=== PATIENT | female | born 1955 | race Caucasian/White ===

== ENCOUNTER 2017-03-25 11:36 | Inpatient (IN) ==
[2017-03-25] MEDS ORDERED: 0.9 % SODIUM CHLORIDE 1,000 ML IV ONE (12:06)
[2017-03-25] MEDS ORDERED: ONDANSETRON 4 MG/2 ML VIAL IV ONE (12:25)
[2017-03-25 12:47] LABS: Basophils # (Auto) 0 K/mcL (0.0-0.3); Basophils % (Auto) 0.3 % (0.0-2.0); Eosinophils # (Auto) 0.1 K/mcL (0.0-0.7); Eosinophils % (Auto) 1.4 % (0.0-7.0); Granulocytes % (Auto) 69.9 % (38.0-78.0); Lymphocytes # (Auto) 1.9 K/mcL (1.5-4.8); Lymphocytes % (Auto) 21.4 % (15.5-49.0); Mean Cell Volume 100.9 fL (80.0-100.0); Mean Corpuscular HGB Conc 34.1 g/dL (31.0-36.0); Mean Corpuscular Hemoglobin 34.4 pg (26.0-34.0); Monocytes # (Auto) 0.6 K/mcL (0.1-0.9); Platelet Count 336 K/mcL (140-440); RBC 4.26 M/mcL (4.00-5.20); Red Cell Distribution Width 13.8 % (11.5-14.5)
--- NOTE | 2017-03-25 12:51 | Emergency Department Note ---
Abdominal Pain HPI - General Chief Complaint: Abdominal Pain Stated Complaint: Abd pain since Wednesday Time Seen by Provider: 03/25/17 12:20 Source: patient Mode of arrival: ambulatory Limitations: no limitations - History of Present Illness HPI Narrative: Patient's tells me that she had an upper respiratory infection about 2 weeks ago. This started with a cough and the cough has been nonproductive for the most part. She does work in recovery and she was prescribed a course of amoxicillin and prednisone by Dr. Vogel who works in anesthesia. She was feeling a little bit better cough xie when she started developing abdominal pain in the mid epigastric area this past Wednesday. She thought it was a flareup of her pancreatitis and thus started drinking very little in the way of fluids, not eating much and she was actually a little bit better yesterday but then the pain started coming back. She rates the pain as being 6 out of 10. She has stopped drinking for the last few days, she normally drinks about 3 glasses of wine per day. Does have a history of [place]-en-Y procedure, she is also status post cholecystectomy, hysterectomy and appendectomy.no fevers associated. No chest pain, she denies any s or other respiratory symptoms. MD Complaint: abdominal pain - Related Data Home Medications Medication Instructions Recorded Confirmed Metoprolol Succinate [Toprol Xl] 100 mg PO DAILY 10/15/15 03/25/17 Valsartan [Diovan] 80 mg PO DAILY 10/15/15 03/25/17 Zolpidem [Ambien] 10 mg PO HSP PRN 10/15/15 03/25/17 amLODIPine [Norvasc] 10 mg PO DAILY 10/15/15 03/25/17 traZODone HCL [Desyrel] 100 mg PO HS 10/15/15 03/25/17 Allergies Allergy/AdvReac Type Severity Reaction Status Date / Time meperidine [From Demerol] Allergy Verified 03/25/17 11:40 Review of Systems All systems ED: reviewed and negative except as stated. Abdominal Pain PMH - Past Medical History Attestation: Yes: The following information was validated with the patient. Medical history: Reports: atrial fibrillation, hyperlipidemia, hypertension, obesity, other (insomnia, hormone replacement, 1 previous episode of A. fib) Surgical history ED: Reports: appendectomy, cholecystectomy, hysterectomy, other ([place]-en-Y procedure back in 2004. This is for gastric bypass surgery.) Family history: Reports: no significant family history - Social History Smoking status: Former smoker Alcohol use: Reports: Heavy (3-5 glasses of wine per night), Recent Drug use: Reports: none Physical Exam Limitations: no limitations General appearance: alert Head: atraumatic, normocephalic Eye: Present: normal appearance, PERRL, EOMI, scleral icterus ENT: normal exam, normal oropharynx, mucous membranes moist Neck: Present: normal inspection, full ROM, trachea midline. Absent: tenderness Chest: Present: normal inspection, symmetric chest wall rise Respiratory: Present: normal lung sounds bilaterally. Absent: respiratory distress, wheezes Cardiovascular: Present: regular rate, normal heart sounds Abdominal: Present: soft, tenderness, guarding, normal bowel sounds. Absent: distention, rebound Abdominal tenderness: Present: epigastrium, mild Extremities: Present: normal inspection, full ROM. Absent: tenderness Back: Present: normal inspection. Absent: CVA tenderness (R), CVA tenderness (L ), vertebral tenderness Neurological: Present: alert, oriented X3, CN II-XII intact, normal gait Psychiatric: Present: normal affect Skin: Present: warm, dry, intact. Absent: rash Course Vital Signs Temperature 97.4 F 03/25/17 11:37 Pulse Rate 98 H 03/25/17 11:37 Respiratory Rate 16 03/25/17 11:37 Blood Pressure 112/76 03/25/17 11:37 Pulse Oximetry (%) 99 03/25/17 11:37 Temperature 97.4 F 03/25/17 11:37 Pulse Rate 86 03/25/17 14:22 Respiratory Rate 16 03/25/17 11:37 Blood Pressure 139/82 03/25/17 14:22 Pulse Oximetry (%) 98 03/25/17 14:22 Abdominal Pain - MDM Narrative Medical decision making narrative: Labs and x-rays reviewed. No acute findings except for elevated lipase. She is also a little bit dehydrated, Bielen was 27. Patient states her pain is 6 out of 10. We did medicate with hydromorphone. At this point she needs bowel rest, IV fluids, discussed with Dr. Khanna final diagnosis is pancreatitis - Lab Data Lab results reviewed: Yes I reviewed the patient's lab results. Result diagrams: 03/25/17 12:24 03/25/17 12:24 Lab Results 03/25/17 03/25/17 03/25/17 Range/Units 12:24 12:24 14:25 WBC 9.0 (4.5-11.0) K/mcL RBC 4.26 (4.00-5.20) M/mcL Hgb 14.7 (12.0-15.0) g/dL Hct 43.0 (36.0-48.0) % MCV 100.9 H (80.0-100.0) fL MCH 34.4 H (26.0-34.0) pg MCHC 34.1 (31.0-36.0) g/dL RDW 13.8 (11.5-14.5) % Plt Count 336 (140-440) K/mcL MPV 7.1 L (7.4-10.4) fL Gran % 69.9 (38.0-78.0) % Lymph % (Auto) 21.4 (15.5-49.0) % Greer % (Auto) 7.0 (1.0-12.0) % Eos % (Auto) 1.4 (0.0-7.0) % Baso % (Auto) 0.3 (0.0-2.0) % Gran # 6.3 (1.8-8.0) K/mcL Lymph # (Auto) 1.9 (1.5-4.8) K/mcL Gre[place] # (Auto) 0.6 (0.1-0.9) K/mcL Eos # (Auto) 0.1 (0.0-0.7) K/mcL Baso # (Auto) 0 (0.0-0.3) K/mcL Sodium 133 (133-145) mmol/L Potassium 3.8 (3.3-5.1) mmol/L Chloride 90 L (96-108) mmol/L Carbon Dioxide 25 (22-30) mmol/L Anion Gap 18.0 H (8-16) BUN 27 H (6-20) mg/dl Creatinine 1.0 (0.6-1.1) mg/dl GFR Calculation 62 Glucose 114 H (70-105) mg/dL Calcium 10.5 H (8.6-10.4) mg/dl Total Bilirubin 0.8 (0.0-1.0) mg/dL AST 19 (0-37) U/l ALT 14 (0-40) U/l Alkaline Phosphatase 101 (39-117) U/L Total Protein 8.0 (5.9-8.4) gm/dL Albumin 4.0 (3.2-5.2) gm/dL Globulin 4.0 H (2.2-3.7) gm/dL Albumin/Globulin Ratio 1.0 (1.0-2.3) Amylase 181 H (28-100) U/L Lipase 297 H (7-60) U/L Urine Color Yellow Urine Appearance Hazy Urine pH 5.0 (5.0-9.0) Ur Specific [place] 1.021 (1.000-1.035) Urine Protein 30 A (NEG) mg/dL Urine Glucose (UA) Negative (NEG) mg/dL Urine Ketones 20 A (NEG) mg/dL Urine Occult Blood Neg (<0.03) mg/dL Urine Nitrate Neg (NEG) Urine Bilirubin Neg (NEG) mg/dL Urine Urobilinogen Neg (NEG) mg/dL Ur Leukocyte Esterase 250 A (NEG) /uL Urine RBC 2 H (0-1) /hpf Urine WBC 14 H (0-4) /hpf Ur Squamous Epith Cells 1 (0-4) /hpf Ur Transition Epith Cell 1 (0-2) /hpf Urine Bacteria 0 (0) /hpf Hyaline Casts 11 H (0-2) /lpf Urine Mucus Few (0) /hpf Ur Culture Indicated? Yes Disposition Pt seen by [facility]/PA only: No Clinical Impression: Pancreatitis Disposition: Xfer As Outpt/Obs ([facility]) Condition: Fair Referrals: Moises Romeo MD [Primary Care Provider] -
[2017-03-25] MEDS ORDERED: PANTOPRAZOLE 40 MG VIAL IV ONE (12:56)
[2017-03-25 13:08] LABS: ALT/SGPT 14 U/l (0-40); Alkaline Phosphatase 101 U/L (39-117); Amylase 181 U/L (28-100); Blood Urea Nitrogen 27 mg/dl (6-20); Lipase 297 U/L (7-60)
[2017-03-25] MEDS: HYDROmorphone 2 MG/ML SYRINGE IV PRN ×5 (13:23→19:57)
[2017-03-25 14:44] LABS: Appearance,Urine HAZY; Bacteria,Urine 0 /hpf (0); Bilirubin,Urine NEG (NEG); Color,Urine YELLOW; Glucose,Urine (UA) NEGATIVE (NEG); Leukocyte Esterase,Urine 250 /uL (NEG); Mucus,Urine FEW /hpf (0); Nitrate,Urine NEG (NEG); Protein,Urine 30 mg/dL (NEG); Specific Gravity,Urine 1.021 (1.000-1.035); Urine Blood NEG mg/dL (<0.03); Urine Hyaline Cast 11 /lpf (0-2); Urine RBC 2 /hpf (0-1); Urine Squamous Epithelial Cell 1 /hpf (0-4); Urine Transitional Epi Cells 1 /hpf (0-2); Urine WBC 14 /hpf (0-4); Urobilinogen,Urine NEG (NEG)
--- NOTE | 2017-03-25 15:05 | XRay Report ---
CLINICAL INFORMATION: Abdomen pain COMPARISON: None. FINDINGS: The stool gas pattern is unremarkable. There is no free air, soft tissue mass, organomegaly or pathologic calcification. IMPRESSION: Normal abdomen Interpreted and Authenticated by: Delvin Benitez 03/25/17
[2017-03-25] MEDS ORDERED: PROMETHAZINE 25 MG/ML VIAL IV ONE (16:09)
--- NOTE | 2017-03-25 16:52 | Internal Med History&Physical ---
Medical - H&P: HPI Patient information: Note initiated : 03/25/17 at 4:51 pm Patient: Sonia Hernandez 61 y/o F admitted on for Abd pain since Wednesday. History of present illness: Ms. Hernandez is a 61 year old female with a history of hypertension and one previous episode of pancreatitis. About 2 weeks ago, she developed signs and symptoms of an upper respiratory infection with cough and fever. She was prescribed amoxicillin and prednisone. She says she did a great deal of coughing, and felt that her abdominal discomfort was related to all of the coughing. Then, 3 days ago, her abdominal pain became a more significant symptom. She is having a lot of pain in the epigastric area, which has gotten consistently worse over the last 2 days. She became concerned that she was having a pancreatitis recurrence, so she basically stopped eating and drinking at home, hoping it would settle down, but it did not. For the last couple of days now, she has been feeling lightheaded. She continues to have a mildly sore throat and a cough productive of clear to yellowish phlegm. Her abdominal pain is currently about a 6 out of 10. She has had nausea and vomiting. She initially brought up just food, and then just frothy phlegm. She denies any hematemesis. She has not had diarrhea or blood in her stool. She is noticing that her urine is turning dark and has a strong odor. ER evaluation showed mildly elevated BUN and mildly elevated lipase. She is now admitted for bowel rest and pain management. Otherwise, she denies fever. She feels chilled chest today. She denies headaches, new eye or ear symptoms, sinus symptoms, swollen glands. She denies chest pain or palpitations, shortness of breath or wheezing, dysuria. Past medical history: Hypertension History of [place]-en-Y bypass Pancreatitis in September 2015, thought to be due to alcohol use Breast lumpectomy for benign lesion Almost daily alcohol use Medications: Amlodipine 10 mg daily Metoprolol XL 100 mg daily Trazodone 100 mg nightly Valsartan 80 mg daily Ambien 10 mg nightly as needed, last used about 2 weeks ago. Allergies: Demerol. Family history: Mom had hypertension and stroke. Sister had breast cancer. Social history: The patient says last year she was drinking 4-8 glasses of wine per day. Since then she has cut down to 0-4 glasses per day. She smokes cigarettes for about 15 years, but quit around age 39. She does not use drugs. 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 She is and lives with her . Medical - H&P: Meds Home Medications Medication Instructions Recorded Confirmed Type Metoprolol Succinate [Toprol Xl] 100 mg PO DAILY 10/15/15 03/25/17 History Valsartan [Diovan] 80 mg PO DAILY 10/15/15 03/25/17 History Zolpidem [Ambien] 10 mg PO HSP PRN 10/15/15 03/25/17 History amLODIPine [Norvasc] 10 mg PO DAILY 10/15/15 03/25/17 History traZODone HCL [Desyrel] 100 mg PO HS 10/15/15 03/25/17 History Allergies Allergy/AdvReac Type Severity Reaction Status Date / Time meperidine [From Demerol] Allergy Verified 03/25/17 11:40 Medical - H&P: Exam - Constitutional Vitals: Temp Pulse Resp BP Pulse Ox 97.4 F 73 16 143/72 97 03/25/17 11:37 03/25/17 16:19 03/25/17 11:37 03/25/17 16:19 03/25/17 16:19 On exam, she is a well-developed well-nourished female, who appears uncomfortable. She frequently shifts positions in the bed due to epigastric pain. T-max is 99.8 Head: Normocephalic, atraumatic. Ears: Canals are clear. Left TM is clear. Right TM has significant scarring. Eyes: PERRLA, EOMI, anicteric. Pharynx: Pharynx is clear. Teeth are in fair condition. No posterior pharynx exudate is noted. Neck: Is supple, without obvious lymphadenopathy, JVD, thyromegaly, bruits. Cardiac exam: Shows regular rate and rhythm with normal S1 and S2, without murmurs, rubs, gallops. Lungs: Have a few crackles at the bases, but are otherwise clear, without rhonchi or wheezes. Abdomen: Is obese, but soft. There is some guarding. She has significant epigastric tenderness, but no significant rebound. Bowel sounds are hypoactive. No masses are noted. Extremities: Show no cyanosis, clubbing, edema. Pulses are intact. Neurologic exam: She is alert and oriented, calm and cooperative. Cranial nerves and motor exam are grossly nonfocal. Skin exam does not show any obvious rashes. Medical - H&P: Reslt - Labs CBC & Chem 7: 03/25/17 12:24 03/25/17 12:24 Labs: Short CBC 03/25/17 Range/Units 12:24 WBC 9.0 (4.5-11.0) K/mcL Hgb 14.7 (12.0-15.0) g/dL Hct 43.0 (36.0-48.0) % Plt Count 336 (140-440) K/mcL BMP 03/25/17 12:24 Sodium 133 Potassium 3.8 Chloride 90 L Carbon Dioxide 25 BUN 27 H Creatinine 1.0 Glucose 114 H Calcium 10.5 H Liver Function 03/25/17 Range/Units 12:24 Total Bilirubin 0.8 (0.0-1.0) mg/dL AST 19 (0-37) U/l ALT 14 (0-40) U/l Alkaline Phosphatase 101 (39-117) U/L Albumin 4.0 (3.2-5.2) gm/dL Urine 03/25/17 Range/Units 14:25 Urine Color Yellow Urine Appearance Hazy Urine pH 5.0 (5.0-9.0) Ur Specific [place] 1.021 (1.000-1.035) Urine Protein 30 A (NEG) mg/dL Urine Glucose (UA) Negative (NEG) mg/dL March 25: Chemistry panel shows elevated anion gap of 18. Total calcium is elevated at 10.5 Globulin fraction is elevated at 4.0 Lipase is elevated at 297 [place] amylase is elevated at 181. Next Urinalysis: 30 mg of protein, 20+ ketones, 250 leukocyte esterase, 14 white blood cells, 11 hyaline casts, 0 bacteria Abdominal x-ray: Is read as a normal abdomen. Medical - H&P: A/P (1) Hypertension Current visit: Yes Status: Acute (2) Alcohol use Current visit: Yes Status: Acute (3) Insomnia Current visit: Yes Status: Acute (4) Pancreatitis Current visit: Yes Status: Acute - Narrative A/P Narrative: #1. GI. Patient presents with abdominal pain, elevated amylase and lipase, consistent with recurrent pancreatitis. She reports she was diagnosed with chronic pancreatitis last year. She has cut down her alcohol use, but has not quit. Her doctors last year felt that alcohol was probably the cause. However, she also takes other medications that could cause pancreatitis. -Patient has failed home management. She will be admitted for IV fluids, bowel rest, pain management, nausea management. -Abdominal CT was not done yet. If her symptoms do not improve quickly, we may check either a sonogram or MRI or CT. -The patient reports she understands she really needs to cut down or cut out alcohol use. -Check serial labs. 2. CODE STATUS: Full code. 3. DVT prophylaxis: Subcu heparin. 4. Pulmonary. Patient has been battling a recent upper respiratory infection. It sounds like that overall is improving. 5. Hypertension. Continue amlodipine and metoprolol as tolerated. Hold valsartan for now, as this can also cause pancreatitis. Next 6. Regular alcohol use. Use Ativan as needed for agitation or other signs of early withdrawal. Approximately 55 minutes was spent today, reviewing her case with the ER MD, reviewing her records, interviewing and examining the patient, and writing orders.
[2017-03-25] MEDS ORDERED: NALOXONE HCL 0.4 MG/ML VIAL IV PRN (17:24)
[2017-03-25] MEDS ORDERED: ACETAMINOPHEN 650 MG/65 ML BOTTLE IV PRN (17:24)
[2017-03-25] MEDS ORDERED: MAGNESIUM HYDROXIDE 30 ML ORAL.SUSP PO PRN (17:24)
[2017-03-25] MEDS ORDERED: ALBUTEROL SULFATE 2.5 MG/3 ML NEBULIZER NEB PRN (17:24)
[2017-03-25] MEDS: DEXTROSE 5%-1/2NS W/20MEQ KCL 1,000 ML IV SCH (17:56)
[2017-03-25] MEDS: ONDANSETRON 4 MG/2 ML VIAL IV PRN (19:58)
[2017-03-25] MEDS: 0.9 % SODIUM CHLORIDE 10 ML SYRINGE IV SCH ×2 (19:58→21:36)
[2017-03-25] MEDS: HEPARIN 5,000 UNIT/ML VIAL SQ SCH (21:36)
[2017-03-25] MEDS: LORazepam 2 MG/ML VIAL IV PRN (21:36)
[2017-03-25] MEDS: traZODone HCL 50 MG TABLET PO SCH (21:41)
[2017-03-26] MEDS: HYDROmorphone 2 MG/ML SYRINGE IV PRN ×5 (00:03→19:18)
[2017-03-26] MEDS: DEXTROSE 5%-1/2NS W/20MEQ KCL 1,000 ML IV SCH ×3 (02:07→21:23)
[2017-03-26] MEDS: 0.9 % SODIUM CHLORIDE 10 ML SYRINGE IV SCH ×3 (04:51→22:42)
[2017-03-26 05:43] LABS: Basophils # (Auto) 0 K/mcL (0.0-0.3); Basophils % (Auto) 0.2 % (0.0-2.0); Eosinophils # (Auto) 0.1 K/mcL (0.0-0.7); Eosinophils % (Auto) 0.8 % (0.0-7.0); Granulocytes % (Auto) 70.5 % (38.0-78.0); Lymphocytes # (Auto) 1.2 K/mcL (1.5-4.8); Lymphocytes % (Auto) 19.2 % (15.5-49.0); Mean Cell Volume 100.8 fL (80.0-100.0); Mean Corpuscular HGB Conc 34.5 g/dL (31.0-36.0); Mean Corpuscular Hemoglobin 34.7 pg (26.0-34.0); Monocytes # (Auto) 0.6 K/mcL (0.1-0.9); Monocytes % (Auto) 9.3 % (1.0-12.0); Platelet Count 304 K/mcL (140-440); RBC 3.54 M/mcL (4.00-5.20); Red Cell Distribution Width 13.8 % (11.5-14.5)
[2017-03-26 06:03] LABS: ALT/SGPT 12 U/l (0-40); Albumin 3.2 gm/dL (3.2-5.2); Albumin/Globulin Ratio 1.1 (1.0-2.3); Alkaline Phosphatase 76 U/L (39-117); Bilirubin,Direct < 0.2 mg/dL (0.0-0.3); Blood Urea Nitrogen 13 mg/dl (6-20); Gamma Glutamyl Transpeptidase 42 U/L (5-36); Magnesium 2.2 mg/dL (1.6-2.5); Uric Acid 6.4 mg/dL (2.5-8.0)
[2017-03-26 06:12] LABS: Lipase 631 U/L (7-60)
[2017-03-26] MEDS ORDERED: POTASSIUM PHOSPHATE 40 MEQ in DEXTROSE 5% IN WATER 500 ML IV ONE (07:32)
[2017-03-26] MEDS: ONDANSETRON 4 MG/2 ML VIAL IV PRN (08:15)
[2017-03-26] MEDS: LOSARTAN 50 MG TABLET PO SCH (10:05)
[2017-03-26] MEDS: METOPROLOL SUCCINATE 50 MG TAB.XL.24H PO SCH (10:05)
[2017-03-26] MEDS: amLODIPine 10 MG TABLET PO SCH (10:05)
[2017-03-26] MEDS: HEPARIN 5,000 UNIT/ML VIAL SQ SCH ×2 (10:05→22:42)
--- NOTE | 2017-03-26 11:12 | Internal Med Progress Note ---
Medical - PN: Subj Patient information: Note initiated : 03/26/17 at 11:12 am Patient: Sonia Hernandez 61 y/o F admitted on 03/25/17 for Abd Pain since Wednesday /Pancreatitis. Interval history: March 25, 2017: History of present illness: Ms. Hernandez is a 61 year old female with a history of hypertension and one previous episode of pancreatitis. About 2 weeks ago, she developed signs and symptoms of an upper respiratory infection with cough and fever. She was prescribed amoxicillin and prednisone. She says she did a great deal of coughing, and felt that her abdominal discomfort was related to all of the coughing. Then, 3 days ago, her abdominal pain became a more significant symptom. She is having a lot of pain in the epigastric area, which has gotten consistently worse over the last 2 days. She became concerned that she was having a pancreatitis recurrence, so she basically stopped eating and drinking at home, hoping it would settle down, but it did not. For the last couple of days now, she has been feeling lightheaded. She continues to have a mildly sore throat and a cough productive of clear to yellowish phlegm. Her abdominal pain is currently about a 6 out of 10. She has had nausea and vomiting. She initially brought up just food, and then just frothy phlegm. She denies any hematemesis. She has not had diarrhea or blood in her stool. She is noticing that her urine is turning dark and has a strong odor. ER evaluation showed mildly elevated BUN and mildly elevated lipase. She is now admitted for bowel rest and pain management. Otherwise, she denies fever. She feels chilled chest today. She denies headaches, new eye or ear symptoms, sinus symptoms, swollen glands. She denies chest pain or palpitations, shortness of breath or wheezing, dysuria. March 26: Today, the patient reports she is feeling better. She still has epigastric pain that she rates as about 5 out of 10, relieved by Dilaudid. Nausea is controlled with Zofran. Lipase actually increased today. So far patient has been tolerating oral medications with sips of water, but is otherwise n.p.o. Phosphorus level is low today. Otherwise patient denies fever chills, chest pain or shortness of breath, vomiting or diarrhea, dysuria. - Constitutional Vitals: Vital Signs Temp Pulse Resp BP Pulse Ox 99.6 F H 84 16 148/90 97 03/26/17 08:00 03/26/17 08:00 03/26/17 08:00 03/26/17 08:00 03/26/17 08:00 Period Temp Pulse Resp BP Sys/Zambrano Pulse Ox Last 24 Hr 97.4 F-99.8 F 71-105 16-20 109-156/62-90 93-100 Intake and Output 03/25/17 03/26/17 03/26/17 21:59 05:59 13:59 Intake Total 1000 / 1000 800 / 800 Output Total 75 / 75 700 / 700 Balance -75 / -75 1000 / 1000 100 / 100 Weight 186 lb 8 oz 186 lb 8 oz Patient Weight 03/27/17 05:59 Weight 186 lb 8 oz Intake & Output: Intake & Output 03/25/17 03/26/17 03/26/17 21:59 05:59 13:59 Intake Total 1000 / 1000 800 / 800 Output Total 75 / 75 700 / 700 Balance -75 / -75 1000 / 1000 100 / 100 Weight 186 lb 8 oz 186 lb 8 oz Intake: IV 1000 / 1000 800 / 800 Dextrose 5%-1/2Ns W/20Meq KCl 1 1000 / 1000 800 / 800 ,000 ml @ 125 mls/hr IV Q8H ZEFERINO Rx#:[id number] Oral 0 / 0 Output: Void Amount 75 / 75 700 / 700 Other: # Voids 1 1 1 She is awake and alert, sitting up in bed. She does grimace if she moves around too much. Neck is supple without obvious lymphadenopathy or JVD. Cardiac exam shows regular rate and rhythm. Lungs are clear to auscultation. Abdomen: Is soft, but still with moderate epigastric tenderness. There is some guarding but no rebound. Bowel sounds are active. Extremities show no edema. Neurologic exam: Patient is alert and calm, and denies tremulousness or anxiety. Exam is grossly nonfocal. Medical - PN: Obj Da - Labs CBC & Chem 7: 03/26/17 04:05 03/26/17 04:05 Labs: Abnormal Lab Results 03/26/17 03/26/17 03/25/17 04:05 04:05 14:25 RBC 3.54 L Hct 35.7 L MCV 100.8 H MCH 34.7 H MPV 7.3 L Lymph # (Auto) 1.2 L Chloride Anion Gap BUN Glucose 134 H Calcium Phosphorus 1.8 L GGT 42 H Globulin Amylase Lipase 631 H Urine Protein 30 A Urine Ketones 20 A Ur Leukocyte Esterase 250 A Urine RBC 2 H Urine WBC 14 H Hyaline Casts 11 H 03/25/17 03/25/17 12:24 12:24 RBC Hct MCV 100.9 H MCH 34.4 H MPV 7.1 L Lymph # (Auto) Chloride 90 L Anion Gap 18.0 H BUN 27 H Glucose 114 H Calcium 10.5 H Phosphorus GGT Globulin 4.0 H Amylase 181 H Lipase 297 H Urine Protein Urine Ketones Ur Leukocyte Esterase Urine RBC Urine WBC Hyaline Casts March 26: Urine culture: Is growing less than 10,000 gram-negative bacilli. March 25: Chemistry panel shows elevated anion gap of 18. Total calcium is elevated at 10.5 Globulin fraction is elevated at 4.0 Lipase is elevated at 297 [place] amylase is elevated at 181. Next Urinalysis: 30 mg of protein, 20+ ketones, 250 leukocyte esterase, 14 white blood cells, 11 hyaline casts, 0 bacteria Abdominal x-ray: Is read as a normal abdomen. Meds: Medications Albuterol Sulfate (Ventolin) 2.5 mg NEB Q2HP PRN PRN Reason: Shortness Of Breath Amlodipine Besylate (Norvasc) 10 mg PO DAILY [facility] [place] Last Admin: 03/26/17 10:05 Dose: 10 mg Heparin Sodium (Porcine) (Heparin) 5,000 unit SQ Q12 ZEFERINO Last Admin: 03/26/17 10:05 Dose: 5,000 unit Hydromorphone HCl (Dilaudid) 1 mg IV Q2HP PRN PRN Reason: PAIN LEVEL > 6 Last Admin: 03/26/17 10:22 Dose: 1 mg Potassium Chloride/Dextrose/Sod Cl (Dextrose 5%-1/2ns W/20meq Kcl) 1,000 mls @ 125 mls/hr IV Q8H [facility] [place] Last Infusion: 03/26/17 10:09 Dose: 125 mls/hr Acetaminophen (Ofirmev) 650 mg in 65 mls @ 130 mls/hr IV Q6HP PRN PRN Reason: PAIN/FEVER > 101 Potassium Phosphate 40 meq/ (Dextrose) 509.0909 mls @ 127.273 mls/hr IV ONCE ONE Stop: 03/26/17 11:31 Last Admin: 03/26/17 10:05 Dose: 127.273 mls/hr Lorazepam (Ativan) 0.5 mg IV Q4-6HP PRN PRN Reason: ANXIETY/SEDATION Last Admin: 03/25/17 21:36 Dose: 0.5 mg Losartan Potassium (Cozaar) 50 mg PO DAILY [facility] [place] Last Admin: 03/26/17 10:05 Dose: 50 mg Magnesium Hydroxide (Milk Of Magnesia) 30 ml PO DAILYP PRN PRN Reason: Constipation Metoprolol Succinate (Toprol Xl) 100 mg PO DAILY [facility] [place] Last Admin: 03/26/17 10:05 Dose: 100 mg Naloxone HCl (Narcan) 0.1 mg IV Q2MIN PRN PRN Reason: Opiate Reversal Ondansetron HCl (Zofran) 4 mg IV Q6HP PRN PRN Reason: Nausea And Vomiting Last Admin: 03/26/17 08:15 Dose: 4 mg Sodium Chloride (Saline Flush) 10 ml IV Q8 [facility] [place] Last Admin: 03/26/17 04:51 Dose: Not Given Trazodone HCl (Desyrel) 100 mg PO HS [facility] [place] Last Admin: 03/25/17 21:41 Dose: Not Given Medical - PN: A/P - Time Spent With Patient Total time spent is greater than 50% in coordination of care (as documented) at patient's floor/unit and/or counseling patient: 25 - 35 minutes (1) Hypertension Status: Acute Current Visit: Yes (2) Alcohol use Status: Acute Current Visit: Yes (3) Insomnia Status: Acute Current Visit: Yes (4) Pancreatitis Status: Acute Current Visit: Yes - Narrative A/P Narrative: #1. GI. Patient presents with abdominal pain, elevated amylase and lipase, consistent with recurrent pancreatitis. She reports she was diagnosed with chronic pancreatitis last year. She has cut down her alcohol use, but has not quit. Her doctors last year felt that alcohol was probably the cause. However, she also takes other medications that could cause pancreatitis. - admitted for IV fluids, bowel rest, pain management, nausea management. She is feeling a bit better today, but her lipase is actually higher. We will have her continue with n.p.o. status. Change IV fluids to a banana bag regarding her chronic alcohol use. -Abdominal CT was not done yet. If her symptoms do not improve quickly, we may check either a sonogram or MRI or CT. -The patient reports she understands she really needs to cut down or cut out alcohol use. -Follow serial labs. 2. CODE STATUS: Full code. 3. DVT prophylaxis: Subcu heparin. 4. Pulmonary. Patient has been battling a recent upper respiratory infection. It sounds like that overall is improving. 5. Hypertension. Continue amlodipine and metoprolol as tolerated. Hold valsartan for now, as this can also cause pancreatitis. Blood pressure currently in normal range. 6. Regular alcohol use. Use Ativan as needed for agitation or other signs of early withdrawal. Replace B vitamins. Disposition: Since it appears she will take several days to turn around, we will change her to inpatient status, regarding her inability to take p.o., and the need to follow-up on pancreatitis symptoms. Medical - PN: Qual - Stroke Symptom Onset Unknown: No - VTE Deep Vein Thrombosis/Pulmonary Embolism Present on Admission: No
[2017-03-26] MEDS: POTASSIUM CHLORIDE 20 MEQ, MAGNESIUM SULFATE 16.24 MEQ, THIAMINE 100 MG, MVI, ADULT NO.... IV SCH (15:35)
[2017-03-26] MEDS: LORazepam 2 MG/ML VIAL IV PRN (21:22)
[2017-03-26] MEDS: traZODone HCL 50 MG TABLET PO SCH (21:23)
[2017-03-27] MEDS: HYDROmorphone 2 MG/ML SYRINGE IV PRN (04:50)
[2017-03-27] MEDS: 0.9 % SODIUM CHLORIDE 10 ML SYRINGE IV SCH (05:16)
[2017-03-27 05:41] LABS: Basophils # (Auto) 0 K/mcL (0.0-0.3); Basophils % (Auto) 0.5 % (0.0-2.0); Eosinophils # (Auto) 0.1 K/mcL (0.0-0.7); Eosinophils % (Auto) 2.2 % (0.0-7.0); Granulocytes % (Auto) 62.8 % (38.0-78.0); Lymphocytes # (Auto) 1.2 K/mcL (1.5-4.8); Lymphocytes % (Auto) 24.5 % (15.5-49.0); Mean Cell Volume 100.6 fL (80.0-100.0); Mean Corpuscular HGB Conc 34.7 g/dL (31.0-36.0); Mean Corpuscular Hemoglobin 34.9 pg (26.0-34.0); Monocytes # (Auto) 0.5 K/mcL (0.1-0.9); Platelet Count 327 K/mcL (140-440); RBC 3.46 M/mcL (4.00-5.20); Red Cell Distribution Width 13.4 % (11.5-14.5)
[2017-03-27 06:07] LABS: ALT/SGPT 13 U/l (0-40); Albumin 3.2 gm/dL (3.2-5.2); Albumin/Globulin Ratio 1.1 (1.0-2.3); Alkaline Phosphatase 79 U/L (39-117); Bilirubin,Direct < 0.2 mg/dL (0.0-0.3); Blood Urea Nitrogen 6 mg/dl (6-20); Gamma Glutamyl Transpeptidase 41 U/L (5-36); Lipase 251 U/L (7-60); Magnesium 2.5 mg/dL (1.6-2.5)
[2017-03-27] MEDS: DEXTROSE 5%-1/2NS W/20MEQ KCL 1,000 ML IV SCH (07:45)
[2017-03-27] MEDS: METOPROLOL SUCCINATE 50 MG TAB.XL.24H PO SCH (09:04)
[2017-03-27] MEDS: LOSARTAN 50 MG TABLET PO SCH (09:04)
[2017-03-27] MEDS: HEPARIN 5,000 UNIT/ML VIAL SQ SCH (09:04)
[2017-03-27] MEDS: amLODIPine 10 MG TABLET PO SCH (09:04)
[2017-03-27] MEDS: POTASSIUM CHLORIDE 20 MEQ, MAGNESIUM SULFATE 16.24 MEQ, THIAMINE 100 MG, MVI, ADULT NO.... IV SCH (09:06)
[2017-03-27] MEDS ORDERED: HYDROcodone/APAP 5/325MG TABLET PO PRN (12:09)
[2017-03-27] MEDS ORDERED: ONDANSETRON ODT 4 MG TABLET SL PRN (12:09)
--- NOTE | 2017-03-27 14:59 | Discharge Summary ---
Medical - DS: Prov Patient information: Note initiated : 03/27/17 at 2:55 pm Service Date, if different from initiated Date: [] Patient: Sonia Hernandez 61 y/o F admitted on 03/25/17 for Abd Pain since Wednesday /Pancreatitis. Chief Complaint: [] Date of admission: 03/25/17 17:25 Discharge date: 03/27/17 Primary care physician: Moises Romeo Admitting clinician: Deysi Lee Consults: 03/25/17 14:45 Consult to Physician [CONS] Stat Comment: Consulting Provider: Deysi Lee Reason For Exam: Physician to Consult Attending physician on discharge: Deysi Lee Medical - DS: Meds - Discharge Medications Prescriptions: Cyanocobalamin/FA/Pyridoxine [B Complex-Folic Acid Tablet] 1 each PO QDAY #30 tab HYDROcodone/APAP 5/325MG [[place] 5/325Mg] 1 tab PO Q4-6HP PRN #15 tab PRN Reason: Pain Ondansetron HCl [Zofran ODT] 4 mg SL Q4HP PRN #20 tab PRN Reason: Nausea And Vomiting Active and Home Medications: Discharge medications: Hydrocodone 5/APAP 325, 1 p.o. every 4 hours as needed abdominal pain Zofran 4 mg sublingual every 4 hours as needed nausea Resume other usual home medications. Previous home Medications Metoprolol Succinate [Toprol Xl] 100 mg PO DAILY 10/15/15 [History Confirmed Last Taken 10/14/15] Valsartan [Diovan] 80 mg PO DAILY 10/15/15 [History Confirmed 03/25/17 Last Taken 10/14/15] Zolpidem [Ambien] 10 mg PO HSP PRN 10/15/15 [History Confirmed 03/25/17 Last Taken 10/14/15] amLODIPine [Norvasc] 10 mg PO DAILY 10/15/15 [History Confirmed 03/25/17 Last Taken 10/14/15] traZODone HCL [Desyrel] 100 mg PO HS 10/15/15 [History Confirmed 03/25/17 Last Taken 10/14/15] Medical - DS: Hosp Hospital course: Mr. Hernandez is a 61 year old F March 25, 2017: History of present illness: Ms. Vanpelt is a 61 year old female with a history of hypertension and one previous episode of pancreatitis. About 2 weeks ago, she developed signs and symptoms of an upper respiratory infection with cough and fever. She was prescribed amoxicillin and prednisone. She says she did a great deal of coughing, and felt that her abdominal discomfort was related to all of the coughing. Then, 3 days ago, her abdominal pain became a more significant symptom. She is having a lot of pain in the epigastric area, which has gotten consistently worse over the last 2 days. She became concerned that she was having a pancreatitis recurrence, so she basically stopped eating and drinking at home, hoping it would settle down, but it did not. For the last couple of days now, she has been feeling lightheaded. She continues to have a mildly sore throat and a cough productive of clear to yellowish phlegm. Her abdominal pain is currently about a 6 out of 10. She has had nausea and vomiting. She initially brought up just food, and then just frothy phlegm. She denies any hematemesis. She has not had diarrhea or blood in her stool. She is noticing that her urine is turning dark and has a strong odor. ER evaluation showed mildly elevated BUN and mildly elevated lipase. She is now admitted for bowel rest and pain management. Otherwise, she denies fever. She feels chilled chest today. She denies headaches, new eye or ear symptoms, sinus symptoms, swollen glands. She denies chest pain or palpitations, shortness of breath or wheezing, dysuria. March 26: Today, the patient reports she is feeling better. She still has epigastric pain that she rates as about 5 out of 10, relieved by Dilaudid. Nausea is controlled with Zofran. Lipase actually increased today. So far patient has been tolerating oral medications with sips of water, but is otherwise n.p.o. Phosphorus level is low today. Otherwise patient denies fever chills, chest pain or shortness of breath, vomiting or diarrhea, dysuria. March 27: Hospital course: This morning, the patient is feeling better. She is having less abdominal pain and nausea. We advanced her to clear liquid diet, and changed her pain and nausea medicines to oral. She seems to have tolerated these well, and chose to return home today. Lipase is improved, though not back to normal. Otherwise, she denies fever chills, chest pain or shortness of breath, vomiting or diarrhea, dysuria. She is awake and alert, sitting up in bed. She appears quite comfortable this morning. Neck is supple without obvious lymphadenopathy or JVD. Cardiac exam shows regular rate and rhythm. Lungs are clear to auscultation. Abdomen: Is soft, with minimal epigastric tenderness. There is no guarding or rebound.. Bowel sounds are active. Extremities show no edema. Neurologic exam: Patient is alert and calm, and denies tremulousness or anxiety. Exam is grossly nonfocal. A/P Narrative: #1. GI. Patient presents with abdominal pain, elevated amylase and lipase, consistent with recurrent pancreatitis. She reports she was diagnosed with chronic pancreatitis last year. She has cut down her alcohol use, but has not quit. Her doctors last year felt that alcohol was probably the cause. However, she also takes other medications that could cause pancreatitis. - admitted for IV fluids, bowel rest, pain management, nausea management. She is feeling a better today, and her lipase is improving. She seems to be tolerating oral nutrition and medication, so will be discharged home. 2. CODE STATUS: Full code. 3. DVT prophylaxis: Subcu heparin. 4. Pulmonary. Patient has been battling a recent upper respiratory infection. It sounds like that overall is improving. 5. Hypertension. Continue amlodipine and metoprolol as tolerated. Alert and was held, but can probably be resumed once she returns home. Blood pressure currently in normal range. 6. Regular alcohol use. Discussed this with her, and she reports she plans on quitting. Replace B vitamins. Discharge diagnosis: Pancreatitis. Chronic alcohol use. - Time Spent with Patient Total time spent providing and/or coordinating discharge services: Greater than 30 minutes Medical - DS: Exam - Constitutional Vitals: Vital Signs Temp Pulse Resp BP Pulse Ox 03/27/17 12:00 97.2 F 68 18 153/91 94 03/27/17 07:00 98.7 F 79 16 131/72 95 03/27/17 04:00 98.2 F 65 18 156/84 96 03/27/17 00:00 98.4 F 66 18 138/81 96 03/26/17 20:00 98.2 F 70 18 130/80 98 03/26/17 16:00 98.4 F 69 16 120/78 97 Intake and Output 03/27/17 03/27/17 03/27/17 05:59 13:59 21:59 Intake Total 2024 50 / 50 Output Total 900 / 900 250 / 250 Balance 1125 / 1125 -200 / -200 Intake: IV 2024 Dextrose 5%-1/2Ns W/20Meq KCl 1 1000 / 1000 ,000 ml @ 125 mls/hr IV Q8H ZEFERINO Rx#:[id number] Potassium Chloride 20 Meq 1025 / 1025 Magnesium Sulfate 16.24 Meq Vitamin B1 100 mg Infuvite Adult 10 ml In Sodium Chloride 0.9% 1,000 ml @ 125 mls/hr IV DAILY ZEFERINO Rx#:[id number] Oral 0 / 0 50 / 50 Output: Void Amount 900 / 900 250 / 250 Medical - DS: Data Labs on day of discharge: Labs from last 24 hours 03/27/17 03/27/17 04:30 04:30 WBC 4.9 RBC 3.46 L Hgb 12.1 Hct 34.8 L MCV 100.6 H MCH 34.9 H MCHC 34.7 RDW 13.4 Plt Count 327 MPV 7.2 L Gran % 62.8 Lymph % (Auto) 24.5 [place] % (Auto) 10.0 Eos % (Auto) 2.2 Baso % (Auto) 0.5 Gran # 3.0 Lymph # (Auto) 1.2 L [place] # (Auto) 0.5 Eos # (Auto) 0.1 Baso # (Auto) 0 Sodium 138 Potassium 4.0 Chloride 103 Carbon Dioxide 24 Anion Gap 11.0 BUN 6 Creatinine 0.6 GFR Calculation 100 Glucose 122 H Uric Acid 4.0 Calcium 8.7 Phosphorus 1.7 L Magnesium 2.5 Total Bilirubin 0.6 Direct Bilirubin < 0.2 GGT 41 H AST 19 ALT 13 Alkaline Phosphatase 79 Lactate Dehydrogenase 173 Total Protein 6.2 Albumin 3.2 Globulin 3.0 Albumin/Globulin Ratio 1.1 Triglycerides 153 H Lipase 251 H March 26: Urine culture: Is growing less than 10,000 gram-negative bacilli. Lipase: 631 March 25: Chemistry panel shows elevated anion gap of 18. Total calcium is elevated at 10.5 Globulin fraction is elevated at 4.0 Lipase is elevated at 297 [place] amylase is elevated at 181. Next Urinalysis: 30 mg of protein, 20+ ketones, 250 leukocyte esterase, 14 white blood cells, 11 hyaline casts, 0 bacteria Abdominal x-ray: Is read as a normal abdomen. Medical - DS: A/P - Patient/Caregiver Discharge Instructions Activity: increase activity as tolerated Diet: Clear Liquid (Liquid/bland diet, advance as tolerated.) Additional Instructions: Resume diet as instructed below. Activity as tolerated. Increase as tolerated. 1. Pancreatitis. Her symptoms are gradually improving. Please stay on a liquid/bland diet for the next few days, advance as tolerated. Use oral Zofran as needed for nausea, [place] if needed for uncontrolled pain. Avoid spicy foods and alcohol. Follow-up with Dr. Romeo to recheck labs and decide if further referral/ consultation is required. Contact the office on Thursday 03/29 to [phone]. Pain medication can cause constipation. Take an over the counter stool softener while on pain medication. Return to the ER for increased or uncontrolled pain, nausea and/or vomiting, unable to go to the bathroom, dizziness, fever, chills, shortness of breath, chest pain. Prescriptions: Cyanocobalamin/FA/Pyridoxine [B Complex-Folic Acid Tablet] 1 each PO QDAY #30 tab HYDROcodone/APAP 5/325MG [[place] 5/325Mg] 1 tab PO Q4-6HP PRN #15 tab PRN Reason: Pain Ondansetron HCl [Zofran ODT] 4 mg SL Q4HP PRN #20 tab PRN Reason: Nausea And Vomiting - Problem Maintenance (1) Hypertension Status: Acute (2) Alcohol use Status: Acute (3) Insomnia Status: Acute (4) Pancreatitis Status: Acute - Follow up Plan Follow up with: Moises Romeo MD [Primary Care Provider] - Disposition: Home, Self-Care Prognosis: Good Rehab Potential: Good Overall status at discharge: patient is progressing back to baseline Medical - DS: Qual - VTE Deep Vein Thrombosis/Pulmonary Embolism Present on Admission: No
== END 2017-03-27 16:00 | disposition home or self-care (01) | DRG 440 ==
LOC: MEDSUR 11:36 → ED 11:36 → MEDSUR 17:16
PROVIDERS: ADMIT Internal Medicine; ATTEND Internal Medicine

== ENCOUNTER 2017-10-23 08:34 | Inpatient (IN) ==
[2017-10-23] MEDS ORDERED: IOPAMIDOL 100 ML BOTTLE IV ONE (08:35)
[2017-10-23] MEDS ORDERED: 0.9 % SODIUM CHLORIDE 1,000 ML IV ONE (09:13)
[2017-10-23] MEDS ORDERED: ONDANSETRON 4 MG/2 ML VIAL IV ONE ×2 (09:13→12:36)
[2017-10-23 10:00] LABS: Basophils # (Auto) 0 K/mcL (0.0-0.3); Basophils % (Auto) 0.3 % (0.0-2.0); Eosinophils # (Auto) 0 K/mcL (0.0-0.7); Eosinophils % (Auto) 0.1 % (0.0-7.0); Granulocytes % (Auto) 83.2 % (38.0-78.0); Lymphocytes # (Auto) 0.7 K/mcL (1.5-4.8); Lymphocytes % (Auto) 10.1 % (15.5-49.0); Mean Cell Volume 102.4 fL (80.0-100.0); Mean Corpuscular HGB Conc 33.8 g/dL (31.0-36.0); Mean Corpuscular Hemoglobin 34.6 pg (26.0-34.0); Monocytes # (Auto) 0.5 K/mcL (0.1-0.9); Monocytes % (Auto) 6.3 % (1.0-12.0); Platelet Count 229 K/mcL (140-440); RBC 3.71 M/mcL (4.00-5.20); Red Cell Distribution Width 16.8 % (11.5-14.5)
[2017-10-23 10:13] LABS: Appearance,Urine HAZY; Bacteria,Urine 0 /hpf (0); Bilirubin,Urine NEG (NEG); Color,Urine AMBER; Glucose,Urine (UA) 50 mg/dL (NEG); Leukocyte Esterase,Urine 75 /uL (NEG); Mucus,Urine MANY /hpf (0); Protein,Urine 100 mg/dL (NEG); Specific Gravity,Urine 1.032 (1.000-1.035); Urine Blood 0.03 mg/dL (<0.03); Urine RBC 7 /hpf (0-1); Urine Squamous Epithelial Cell 6 /hpf (0-4); Urine Transitional Epi Cells 2 /hpf (0-2); Urine WBC 20 /hpf (0-4)
[2017-10-23 10:18] LABS: ALT/SGPT 35 U/l (0-40); Albumin 4.4 gm/dL (3.2-5.2); Albumin/Globulin Ratio 1.8 (1.0-2.3); Alkaline Phosphatase 96 U/L (39-117); Blood Urea Nitrogen 19 mg/dl (6-20)
[2017-10-23 10:51] LABS: Lipase 6115 U/L (7-60)
[2017-10-23] MEDS ORDERED: LACTATED RINGERS 1,000 ML IV ONE (12:08)
--- NOTE | 2017-10-23 12:13 | Emergency Department Note ---
Abdominal Pain HPI - General Chief Complaint: Abdominal Pain Stated Complaint: Abd pain Time Seen by Provider: 10/23/17 09:12 Source: patient Mode of arrival: ambulatory Limitations: no limitations - History of Present Illness HPI Narrative: 62-year-old female with nausea vomiting diarrhea for the last 2-3 days. History of pancreatitis that resolved. No dysuria or bowel movement issues. No shortness of breath. She used to drink quite a bit but stopped several months ago however she recently restarted drinking and had about 3 drinks last night - Related Data Home Medications Medication Instructions Recorded Confirmed Metoprolol Succinate [Toprol Xl] 100 mg PO DAILY 10/15/15 10/23/17 amLODIPine [Norvasc] 10 mg PO DAILY 10/15/15 10/23/17 traZODone HCL [Desyrel] 100 mg PO HS 10/15/15 10/23/17 QUEtiapine FUMARATE [Seroquel] 100 mg PO HS 05/18/17 10/23/17 Valsartan/Hydrochlorothiazide 0.5 each PO DAILY 05/18/17 10/23/17 [Valsartan-Hctz 320-25 mg Tab] Previous Rx's Medication Instructions Recorded Ondansetron HCl [Zofran ODT] 4 mg SL Q4HP PRN #20 tab 03/27/17 Allergies Allergy/AdvReac Type Severity Reaction Status Date / Time meperidine [From Demerol] Allergy Verified 10/23/17 08:35 Review of Systems All systems ED: reviewed and negative except as stated. Abdominal Pain PMH - Past Medical History Attestation: Yes: The following information was validated with the patient. Medical history: Reports: atrial fibrillation, hyperlipidemia, hypertension, obesity, other (Orthostatic hypotension, insomnia) Reports: pancreatitis Surgical history ED: Reports: appendectomy, cholecystectomy, hysterectomy, lumpectomy, other (Tympanoplasty, gastric bypass) Family history: Reports: no significant family history - Social History Smoking status: Former smoker Alcohol use: Reports: Heavy (3-5 glasses of wine per night), Recent Drug use: Reports: none Physical Exam No acute distress resting. Normocephalic atraumatic. Conjunctive are clear sclerae nonicteric. No nasal discharge or congestion. Oropharynx pink and moist. Posterior pharynx clear. Neck is supple without lymphadenopathy thyromegaly or carotid bruit. Heart is regular rate and rhythm no murmur appreciated. Lungs clear to auscultation bilaterally without wheezes rales rhonchi or respiratory distress. Abdomen soft nontender nondistended except for the epigastric area which is tender but not at the umbilical area. No rigidity peritoneal signs or guarding. No pedal edema. +2 radial pulse. Alert and oriented. Limitations: no limitations Course Vital Signs Temperature 97.3 F 10/23/17 08:35 Pulse Rate 92 H 10/23/17 08:35 Respiratory Rate 16 10/23/17 08:35 Blood Pressure 153/91 10/23/17 08:35 Pulse Oximetry (%) 98 10/23/17 08:35 Temperature 97.3 F 10/23/17 08:35 Pulse Rate 65 10/23/17 11:50 Respiratory Rate 18 10/23/17 11:50 Blood Pressure 157/84 10/23/17 11:13 Pulse Oximetry (%) 96 10/23/17 11:50 Abdominal Pain - Lab Data Lab results reviewed: Yes I reviewed the patient's lab results. Result diagrams: 10/23/17 09:00 10/23/17 09:00 Lab Results 10/23/17 10/23/17 10/23/17 Range/Units 09:00 09:00 09:00 WBC 7.3 (4.5-11.0) K/mcL RBC 3.71 L (4.00-5.20) M/mcL Hgb 12.9 (12.0-15.0) g/dL Hct 38.0 (36.0-48.0) % POC Hct 40.0 (36.0-48.0) % MCV 102.4 H (80.0-100.0) fL MCH 34.6 H (26.0-34.0) pg MCHC 33.8 (31.0-36.0) g/dL RDW 16.8 H (11.5-14.5) % Plt Count 229 (140-440) K/mcL MPV 7.1 L (7.4-10.4) fL Gran % 83.2 H (38.0-78.0) % Lymph % (Auto) 10.1 L (15.5-49.0) % [place] % (Auto) 6.3 (1.0-12.0) % Eos % (Auto) 0.1 (0.0-7.0) % Baso % (Auto) 0.3 (0.0-2.0) % Gran # 6.1 (1.8-8.0) K/mcL Lymph # (Auto) 0.7 L (1.5-4.8) K/mcL [place] # (Auto) 0.5 (0.1-0.9) K/mcL Eos # (Auto) 0 (0.0-0.7) K/mcL Baso # (Auto) 0 (0.0-0.3) K/mcL POC Sodium 140 (133-145) mmol/L Sodium 140 (133-145) mmol/L POC Potassium 3.1 L (3.3-5.1) mmol/L Potassium 3.2 L (3.3-5.1) mmol/L POC Chloride 105 (96-108) mmol/L Chloride 101 (96-108) mmol/L Carbon Dioxide 22 (22-30) mmol/L POC Total CO2 24 (22-30) mmol/L Anion Gap 17.0 H (8-16) POC BUN 18 (6-20) mg/dl BUN 19 (6-20) mg/dl Creatinine 0.9 (0.6-1.1) mg/dl POC Creatinine 0.7 (0.6-1.1) mg/dl GFR Calculation 70 Glucose 148 H (70-105) mg/dL POC Glucose 157 H (70-105) mg/dL Calcium 9.1 (8.6-10.4) mg/dl POC WB Ioniz Calcium 1.06 L (1.16-1.32) mmol/L Total Bilirubin 1.0 (0.0-1.0) mg/dL AST 62 H (0-37) U/l ALT 35 (0-40) U/l Alkaline Phosphatase 96 (39-117) U/L Total Protein 6.9 (5.9-8.4) gm/dL Albumin 4.4 (3.2-5.2) gm/dL Globulin 2.5 (2.2-3.7) gm/dL Albumin/Globulin Ratio 1.8 (1.0-2.3) Amylase 925 H (28-100) U/L Lipase 6115 H (7-60) U/L Urine Color Urine Appearance Urine pH (5.0-9.0) Ur Specific [place] (1.000-1.035) Urine Protein (NEG) mg/dL Urine Glucose (UA) (NEG) mg/dL Urine Ketones (NEG) mg/dL Urine Occult Blood (<0.03) mg/dL Urine Nitrate (NEG) Urine Bilirubin (NEG) mg/dL Urine Urobilinogen (NEG) mg/dL Ur Leukocyte Esterase (NEG) /uL Urine RBC (0-1) /hpf Urine WBC (0-4) /hpf Ur Squamous Epith Cells (0-4) /hpf Ur Transition Epith Cell (0-2) /hpf Urine Bacteria (0) /hpf Urine Mucus (0) /hpf Ur Culture Indicated? 10/23/17 Range/Units 09:08 WBC (4.5-11.0) K/mcL RBC (4.00-5.20) M/mcL Hgb (12.0-15.0) g/dL Hct (36.0-48.0) % POC Hct (36.0-48.0) % MCV (80.0-100.0) fL MCH (26.0-34.0) pg MCHC (31.0-36.0) g/dL RDW (11.5-14.5) % Plt Count (140-440) K/mcL MPV (7.4-10.4) fL Gran % (38.0-78.0) % Lymph % (Auto) (15.5-49.0) % [place] % (Auto) (1.0-12.0) % Eos % (Auto) (0.0-7.0) % Baso % (Auto) (0.0-2.0) % Gran # (1.8-8.0) K/mcL Lymph # (Auto) (1.5-4.8) K/mcL [place] # (Auto) (0.1-0.9) K/mcL Eos # (Auto) (0.0-0.7) K/mcL Baso # (Auto) (0.0-0.3) K/mcL POC Sodium (133-145) mmol/L Sodium (133-145) mmol/L POC Potassium (3.3-5.1) mmol/L Potassium (3.3-5.1) mmol/L POC Chloride (96-108) mmol/L Chloride (96-108) mmol/L Carbon Dioxide (22-30) mmol/L POC Total CO2 (22-30) mmol/L Anion Gap (8-16) POC BUN (6-20) mg/dl BUN (6-20) mg/dl Creatinine (0.6-1.1) mg/dl POC Creatinine (0.6-1.1) mg/dl GFR Calculation Glucose (70-105) mg/dL POC Glucose (70-105) mg/dL Calcium (8.6-10.4) mg/dl POC WB Ioniz Calcium (1.16-1.32) mmol/L Total Bilirubin (0.0-1.0) mg/dL AST (0-37) U/l ALT (0-40) U/l Alkaline Phosphatase (39-117) U/L Total Protein (5.9-8.4) gm/dL Albumin (3.2-5.2) gm/dL Globulin (2.2-3.7) gm/dL Albumin/Globulin Ratio (1.0-2.3) Amylase (28-100) U/L Lipase (7-60) U/L Urine Color [place] Urine Appearance Hazy Urine pH 5.0 (5.0-9.0) Ur Specific [place] 1.032 (1.000-1.035) Urine Protein 100 A (NEG) mg/dL Urine Glucose (UA) 50 A (NEG) mg/dL Urine Ketones 20 A (NEG) mg/dL Urine Occult Blood 0.03 A (<0.03) mg/dL Urine Nitrate Neg (NEG) Urine Bilirubin Neg (NEG) mg/dL Urine Urobilinogen 2.0 A (NEG) mg/dL Ur Leukocyte Esterase 75 A (NEG) /uL Urine RBC 7 H (0-1) /hpf Urine WBC 20 H (0-4) /hpf Ur Squamous Epith Cells 6 H (0-4) /hpf Ur Transition Epith Cell 2 (0-2) /hpf Urine Bacteria 0 (0) /hpf Urine Mucus Many A (0) /hpf Ur Culture Indicated? No - Radiology Data Radiology results reviewed: Yes I reviewed the patient's radiology results. CT scan of the abdomen pelvis shows acute pancreatitis with ductal dilatation. Peripancreatic fat stranding. Also noted solid lesion on the right kidney Disposition Pt seen by [facility] only: No Clinical Impression: Right kidney mass Pancreatitis Qualifiers: Chronicity: acute Pancreatitis type: alcohol induced Acute pancreatitis complication: no infection or necrosis Qualified Code(s): K85.20 - Alcohol induced acute pancreatitis without necrosis or infection Summary: While working up patient is treated with morphine IV fluids Zofran Labs show acute pancreatitis. CT scan confirms and also shows solid right kidney mass. Discussed case with Dr. Delvin Joseph, construction ironworker helper. He did not think the patient required ERCP or MRCP emergently. He said that patient could get an MRCP during hospitalization if needed. He recommended change from normal saline to lactated Ringer's with copious IV fluid to prevent pancreatic necrosis. I discussed the case with Dr. Maldonado, hospitalist. He agreed to accept patient for inpatient treatment and evaluation Disposition: Xfer As Inpt ([facility]) Condition: Fair Referrals: Moises Romeo MD [Primary Care Provider] -
[2017-10-23] MEDS: DEXTROSE 5%-LR 1,000 ML IV SCH (13:24)
[2017-10-23] MEDS ORDERED: POTASSIUM CHLORIDE 40 MEQ in DEXTROSE 5% IN WATER 500 ML IV ONE (13:30)
[2017-10-23] MEDS ORDERED: LORazepam 2 MG/ML VIAL IV ONE (14:07)
--- NOTE | 2017-10-23 14:10 | Internal Med History&Physical ---
Medical - H&P: HPI Patient information: Note initiated : 10/23/17 at 2:07 pm Service Date, if different from initiated Date: [] Patient: Sonia Hernandez a 62 y/o F admitted on 10/23/17 for Abd pain. Chief Complaint: [] History of present illness: Ms. Hernandez is a 62 year old F with history of alcoholism, history of pancolitis in the past, Erendira-en-Y procedure in the past. The patient presents to the emergency room today for abdominal pain that has been going on for 2-1/2 days. Pain is epigastric sharp nonradiating severe intermittent. Worsened by some p.o. intake putting pressure on the abdomen helps. 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 and see if this helps manage his symptoms over the last 2 days however her symptoms kept on worsening. The patient therefore came to the ER for further evaluation. The patient's pain is accompanied by nausea and vomiting. Which she has had multiple times over the last few days. The patient denies any other complaints. She notes she felt hot but denies any documented fever. No cough reported. In 2016 the patient had pancreatitis with dilated pancreatic duct, the patient was transferred to [facility] where she underwent an MRCP, she was advised and ERCP then which she did not follow through with. This time around it seems that the pancreatic duct is more dilated, she is willing to consider an ERCP if needed. Case was discussed with Dr. Peterson in the ER who did not think you needed to be involved in this case. Advised an MRCP during the hospital stay if needed. He felt that the patient did not need emergent ERCP. Patient is being admitted to the hospital for further management. Patient denies any history of alcohol withdrawal. Has history of anxiety. All systems: reviewed and no additional remarkable complaints except as stated ( as per hpi rest neg) Medical - H&P: PMH Medical history: Medical History (Last Reviewed 10/23/17 @ 08:44 by Wanda Bray RN) Pancreatitis (Acute) HTN HLD obesity etoh use anxiety Surgical history: cholecystectomy Family history: reviewed and not pertinent Social history: etoh 1 bottle wine a day no t hc, no tobacco use reported no other recreational drugs Medical - H&P: Meds Home Medications Medication Instructions Recorded Confirmed Type Metoprolol Succinate [Toprol Xl] 100 mg PO DAILY 10/15/15 10/23/17 History amLODIPine [Norvasc] 10 mg PO DAILY 10/15/15 10/23/17 History traZODone HCL [Desyrel] 100 mg PO HS 10/15/15 10/23/17 History Ondansetron HCl [Zofran ODT] 4 mg SL Q4HP PRN #20 tab 03/27/17 10/23/17 Rx QUEtiapine FUMARATE [Seroquel] 100 mg PO HS 05/18/17 10/23/17 History Valsartan/Hydrochlorothiazide 0.5 each PO DAILY 05/18/17 10/23/17 History [Valsartan-Hctz 320-25 mg Tab] Allergies Allergy/AdvReac Type Severity Reaction Status Date / Time meperidine [From Demerol] Allergy Verified 10/23/17 08:35 Medical - H&P: Exam - Constitutional Vitals: Temp Pulse Resp BP Pulse Ox 97.3 F 65 18 157/84 96 10/23/17 13:11 10/23/17 13:11 10/23/17 13:11 10/23/17 13:11 10/23/17 13:11 Exam: GENERAL: The patient is a well-developed, well-nourished in no apparent distress. Is alert and oriented x3. VITAL SIGNS: Reviewed and as noted elsewhere. HEENT: Head is normocephalic and atraumatic. Extraocular muscles are intact. Pupils are equal, round, and reactive to light. Nares appeared normal. Mouth appears any without lesions. Mucous membranes are moist. NECK: Normal to inspection, Supple, No lymphadenopathy or thyromegaly. LUNGS: Air entry equal on both sides, no wheezing, crackles or rhonchi noted. No accessory muscles of respiration HEART: Regular rate and rhythm normal, S1 and S2 heard, no Gallop, S3 or Rub Noted, No Gross murmur heard. ABDOMEN: Soft, epigastric tenderness, no guarding or rigidity, and nondistended. Positive bowel sounds. No hepatosplenomegaly was noted. EXTREMITIES: No cyanosis, clubbing, rash, lesions or edema. NEUROLOGIC: Cranial nerves II through XII are grossly intact. Motor and Sensory System Grossly Intact PSYCHIATRIC: Normal affect, Normal Mood. Appropriate Behavior. SKIN: No ulceration or wounds noted, No jaundice, No rash noted. Medical - H&P: Reslt - Labs CBC & Chem 7: 10/23/17 09:00 10/23/17 09:00 Labs: Short CBC 10/23/17 Range/Units 09:00 WBC 7.3 (4.5-11.0) K/mcL Hgb 12.9 (12.0-15.0) g/dL Hct 38.0 (36.0-48.0) % Plt Count 229 (140-440) K/mcL BMP 10/23/17 09:00 Sodium 140 Potassium 3.2 L Chloride 101 Carbon Dioxide 22 BUN 19 Creatinine 0.9 Glucose 148 H Calcium 9.1 Liver Function 10/23/17 Range/Units 09:00 Total Bilirubin 1.0 (0.0-1.0) mg/dL AST 62 H (0-37) U/l ALT 35 (0-40) U/l Alkaline Phosphatase 96 (39-117) U/L Albumin 4.4 (3.2-5.2) gm/dL Urine 10/23/17 Range/Units 09:08 Urine Color [place]resa Urine Appearance Hazy Urine pH 5.0 (5.0-9.0) Ur Specific [place] 1.032 (1.000-1.035) Urine Protein 100 A (NEG) mg/dL Urine Glucose (UA) 50 A (NEG) mg/dL Medical - H&P: A/P - Narrative A/P Narrative: A/P Acute pancreatitis- Acloholic likely,treat conservatively, IV fluids, npo status and pain meds, monitor clinical response, trend lipase and amylase Dilated pancreatic duct- h/o same in the past, and was advised ercp 2 yrs ago did not follow through, as she felt her surgery for erendira and y would be risky. its to my view it seems pancreatic duct is more dialated this time could be just gradual progression of pancretis, will get mrcp and see if there is any tumor . obstruction. Pt willing to go to higher center for ercp if needed this time. Its very likely that her pancreatitis is etoh related but dialted pancreatic duct is st ill concerning. renal mass- h/o angiolipoma, await for CT interpretation by facility radiologist. Etoh abuse- IV thiamine for now, she zachary withdrawal, last drin 2-3 days ago, monitor for now, consider ciwa if needed pt educated HTN- bp elevated resume home meds and monitor DVT hep sq Diet npo for now anticpate clear liquid tomorrow AM FUll code.
[2017-10-23] MEDS: THIAMINE 100 MG in 0.9 % SODIUM CHLORIDE 50 ML IV SCH (14:12)
[2017-10-23] MEDS: 0.9 % SODIUM CHLORIDE 10 ML SYRINGE IV SCH ×2 (14:13→21:34)
--- NOTE | 2017-10-23 14:34 | XRay Report ---
CLINICAL INFORMATION: Pancreatitis COMPARISON: 03/24/2014. FINDINGS: The heart size, mediastinum and pulmonary vessels are unremarkable. The lungs are clear. There are no effusions. The bones and soft tissues are within normal limits. IMPRESSION: Normal chest. Interpreted and Authenticated by: Delvin Benitez 10/23/17
--- NOTE | 2017-10-23 15:22 | Cat Scan Report ---
CLINICAL INFORMATION: Abdominal pain - suspected recurrent pancreatitis COMPARISON: Abdomen and pelvic CT from two years prior 10/15/2015. TECHNIQUE: Following enteric contrast, 80 cc of Isovue-300 were injected intravenously, and 60 seconds later, 0.625 mm helical slices were obtained from the mid heart through the subtrochanteric regions. Following reconstruction, 2.5 mm sagittal, coronal and axial reformatted images were processed and reviewed at bone, lung and soft tissue windows. Five minutes later, 0.625 mm helical slices were obtained from the mid heart through the kidneys and viewed at soft tissue windows.The exam was performed using radiation dose optimization techniques including, but not limited to, automated exposure control, adjustment of the mA and/or kV according to patient size and use of iterative reconstruction technique. FINDINGS: Lung bases show mild patchy airspace disease in the posterior left lower lobe which could indicate developing infiltrate. There is minor atelectasis right lower lobe. No effusion. The visualized heart is normal in size and configuration Images through the abdomen show mild, stable fatty changes within the liver without focal hepatic lesion. The gallbladder is surgically absent. Intrahepatic and common bile ducts are normal caliber: CBD is 6 mm. There is mild inflammatory changes throughout the pancreatic parenchyma with fluid in the peripancreatic fat planes compatible with simple pancreatitis. Pancreatic duct is moderately dilated, as before, ranging up to 6 mm. There is mild inflammation in the adjacent featuring wall/plicae circulares thickening and periduodenal fluid. There is no abscess, necrosis, pseudoaneurysm or other pancreatitis complication. Several of the small benign fat-containing angiomyolipomas in the right kidney are stable: 12 mm in the lateral cortex superior pole (image 62) 14 mm anterior cortex superior pole (image 62), 12.9 mm anterior cortex inferior pole (image 62), 6 mm lateral cortex mid right kidney (image 67) and 8.5 mm lateral cortex inferior pole right kidney (image 78) . No new renal abnormality. The adrenal glands, spleen and aorta including aortic branches are normal in size and configuration without focal lesion. [place]-en-Y gastric gastric bypass changes are again noted. Images through the pelvis show hysterectomy/ oophorectomy changes. Small/moderate free fluid in the deep true pelvis is related to pancreatitis. The colon, remaining small bowel and stomach are normal. Appendectomy changes acknowledged. Bone windows show moderate L4-5 and L5-S1 degenerative disc disease which is stable. Both SI joints show subchondral erosive changes IMPRESSION: 1. Mild simple pancreatitis. No complication. Pancreatic duct is moderately dilated (6 mm) which shows a slight increase. There is no stone or other cause for proximal pancreatic duct obstruction. 2. Scattered small fat-containing benign angiomyolipomas right kidney - stable 3. Moderate fatty change within the liver - stable 4. Patchy airspace disease developing left lower lobe possible early pneumonia. If there is clinical support, suggest two-view chest x-ray next 24 to 48 hours 5. Mild bilateral sacroiliitis incidentally noted Interpreted and Authenticated by: Delvin Benitez 10/23/17
[2017-10-23] MEDS ORDERED: LORazepam 2 MG/ML VIAL ONE (15:33)
--- NOTE | 2017-10-23 19:59 | Magnetic Resonance Report ---
CLINICAL INFORMATION: Pancreatitis evaluate pancreatic and bile ducts COMPARISON: Abdominal CT 10/23/2017 abdominal MRI MRCP 10/19/2015. TECHNIQUE: MRCP was performed using 3D FRFSE respiratory triggered and single-shot FSE thick slab technique. Axial T2 SSFSE diffusion, ADC and coronal SSFSE images were obtained through the upper abdomen as well. FINDINGS: MRCP images show moderate dilatation and irregularity of Santorini pancreatic duct which has increased in caliber from the 2016 MRCP (it has increased from 5 mm to 7.6 mm). There is abrupt tapering into a normal-appearing caliber Wirsungs duct. This pattern was also noted on the previous ERCP There is no evidence of mass or stone within the proximal pancreatic duct. The gallbladder is surgically absent. The Intrahepatic, common hepatic and common bile ducts are normal in contour and caliber: CBD diameter 5.7 mm. No common bile duct stones are present. There is mild inflammatory changes within the pancreatic parenchyma evidenced by mild restricted diffusion and increased signal on T2-weighted images. There is also mild inflammation in the periduodenal soft tissues. IMPRESSION: Mild simple pancreatitis - possibly an acute exacerbation of pre-existing chronic pancreatitis. Moderate dilatation and irregularity of the Santorini pancreatic duct tapers into a diminutive Wirsungs duct. Santorini duct has increased in caliber from a comparison MRCP two years ago ( increased from 5 mm to 7.9 mm on today's MR). Suspect mild diffuse postinflammatory stricture confined to Wirsungs duct. Patient may benefit from pancreatic duct stenting] The intrahepatic, common hepatic and common bile ducts are unremarkable Interpreted and Authenticated by: Delvin Benitez 10/23/17
[2017-10-23] MEDS: ONDANSETRON 4 MG/2 ML VIAL IV PRN (20:16)
[2017-10-23] MEDS: HEPARIN 5,000 UNIT/ML VIAL SQ SCH (20:16)
[2017-10-23] MEDS: FAMOTIDINE/PF 20 MG/2 ML VIAL IV SCH (20:16)
[2017-10-23] MEDS: QUEtiapine 100 MG TABLET PO SCH (21:34)
[2017-10-23] MEDS: traZODone HCL 100 MG TABLET PO SCH (21:34)
[2017-10-24] MEDS: DEXTROSE 5%-LR 1,000 ML IV SCH ×3 (02:29→18:28)
[2017-10-24] MEDS: ONDANSETRON 4 MG/2 ML VIAL IV PRN ×2 (03:55→17:47)
[2017-10-24] MEDS: 0.9 % SODIUM CHLORIDE 10 ML SYRINGE IV SCH ×3 (05:22→21:29)
[2017-10-24] MEDS ORDERED: PROMETHAZINE 25 MG/ML VIAL IV PRN (07:53)
[2017-10-24] MEDS: THIAMINE 100 MG in 0.9 % SODIUM CHLORIDE 50 ML IV SCH (08:11)
[2017-10-24 08:27] LABS: Basophils # (Auto) 0 K/mcL (0.0-0.3); Basophils % (Auto) 0.4 % (0.0-2.0); Eosinophils # (Auto) 0 K/mcL (0.0-0.7); Eosinophils % (Auto) 0.4 % (0.0-7.0); Granulocytes % (Auto) 77.4 % (38.0-78.0); Lymphocytes # (Auto) 0.9 K/mcL (1.5-4.8); Lymphocytes % (Auto) 14.7 % (15.5-49.0); Mean Cell Volume 102.8 fL (80.0-100.0); Mean Corpuscular HGB Conc 33.8 g/dL (31.0-36.0); Mean Corpuscular Hemoglobin 34.7 pg (26.0-34.0); Monocytes # (Auto) 0.5 K/mcL (0.1-0.9); Monocytes % (Auto) 7.1 % (1.0-12.0); Platelet Count 197 K/mcL (140-440); RBC 3.45 M/mcL (4.00-5.20)
[2017-10-24 09:00] LABS: ALT/SGPT 45 U/l (0-40); Albumin 3.7 gm/dL (3.2-5.2); Albumin/Globulin Ratio 1.6 (1.0-2.3); Alkaline Phosphatase 96 U/L (39-117); Amylase 485 U/L (28-100); Bilirubin,Direct 0.2 mg/dL (0.0-0.3); Blood Urea Nitrogen 7 mg/dl (6-20); Gamma Glutamyl Transpeptidase 99 U/L (5-36); Lipase 1759 U/L (7-60); Uric Acid 4.8 mg/dL (2.5-8.0)
[2017-10-24] MEDS: amLODIPine 10 MG TABLET PO SCH (09:12)
[2017-10-24] MEDS: LOSARTAN 50 MG TABLET PO SCH (09:12)
[2017-10-24] MEDS: HYDROCHLOROTHIAZIDE 12.5 MG CAPSULE PO SCH (09:12)
[2017-10-24] MEDS: HEPARIN 5,000 UNIT/ML VIAL SQ SCH ×2 (09:13→20:55)
[2017-10-24] MEDS: METOPROLOL SUCCINATE 50 MG TAB.XL.24H PO SCH (09:13)
[2017-10-24] MEDS: FAMOTIDINE/PF 20 MG/2 ML VIAL IV SCH ×2 (09:13→20:55)
[2017-10-24] MEDS ORDERED: MAGNESIUM SULFATE 2 GM/50 ML BAG IV ONE (10:00)
[2017-10-24] MEDS ORDERED: POTASSIUM CHLORIDE 80 MEQ in DEXTROSE 5% IN WATER 1,000 ML IV ONE (11:00)
--- NOTE | 2017-10-24 13:16 | Internal Med Progress Note ---
Medical - PN: Subj Patient information: Note initiated : 10/24/17 at 1:13 pm Service Date, if different from initiated Date: [] Patient: Sonia Hernandez a 62 y/o F admitted on 10/23/17 for Abd pain. Chief Complaint: [] Interval history: Ms. Hernandez is a 62 year old F with history of alcoholism, history of pancolitis in the past, [place]-en-Y procedure in the past. The patient presents to the emergency room today for abdominal pain that has been going on for 2-1/2 days. Pain is epigastric sharp nonradiating severe intermittent. Worsened by some p.o. intake putting pressure on the abdomen helps. 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 and see if this helps manage his symptoms over the last 2 days however her symptoms kept on worsening. The patient therefore came to the ER for further evaluation. The patient's pain is accompanied by nausea and vomiting. Which she has had multiple times over the last few days. The patient denies any other complaints. She notes she felt hot but denies any documented fever. No cough reported. In 2015 the patient had pancreatitis with dilated pancreatic duct, the patient was transferred to [facility] where she underwent an MRCP, she was advised and ERCP then which she did not follow through with. This time around it seems that the pancreatic duct is more dilated, she is willing to consider an ERCP if needed. Case was discussed with Dr. Peterson in the ER who did not think you needed to be involved in this case. Advised an MRCP during the hospital stay if needed. He felt that the patient did not need emergent ERCP. Patient is being admitted to the hospital for further management. Patient denies any history of alcohol withdrawal. Has history of anxiety. 10/24 Patient seen and examined, no acute overnight events. Still nauseous, Phenergan added to her regimen of antinausea medications. Pain control okay with the use of morphine. Patient does not report any significant improvement in symptoms compared to yesterday. Will want to keep her n.p.o. for another day. CT scan reviewed, MRCP reviewed, patient has pancreatic duct dilatation it was 5 mm 2 years ago and is now 7.9 mm. I reviewed the case with GI physician at [facility]. Dr. Ham, she advised medical management for now, she will review the case with Dr. patel who is the interventional comfort station attendant there and they will get in touch with us tomorrow regarding further plan of care and let us know the patient is to be transferred up there. Patient updated on the plan of care. No bowel movements today. Pertinent ROS: Denies headache, dizziness Denies chest pain, palpitations Denies cough or shortness of breath Abdominal pain and nausea present, - Constitutional Vitals: Vital Signs Temp Pulse Resp BP Pulse Ox 98.4 F 82 17 134/89 97 10/24/17 12:00 10/24/17 12:00 10/24/17 12:00 10/24/17 12:00 10/24/17 12:00 Period Temp Pulse Resp BP Sys/Zambrano Pulse Ox Last 24 Hr 98.1 F-99.4 F 74-86 16-19 133-161/86-93 91-97 Intake and Output 10/23/17 10/24/17 10/24/17 21:59 05:59 13:59 Intake Total 1611 / 1611 1000 / 1000 Output Total 500 / 500 200 / 200 375 / 375 Balance 1111 / 1111 800 / 800 -375 / -375 Weight 198 lb 8 oz Intake & Output: Intake & Output 10/23/17 10/24/17 10/24/17 21:59 05:59 13:59 Intake Total 1611 / 1611 1000 / 1000 Output Total 500 / 500 200 / 200 375 / 375 Balance 1111 / 1111 800 / 800 -375 / -375 Weight 198 lb 8 oz Intake: IV 1571 / 1571 1000 / 1000 Dextrose 5%-Lactated Ringers 1, 1000 / 1000 000 ml @ 84 mls/hr IV .[id number] [facility] Rx#:[id number] Vitamin B1 100 mg In Sodium 51 / 51 Chloride 0.9% 50 ml @ 50 mls/hr IV DAILY [facility] Rx#:[id number] IV - Manual Only 40 / 40 Output: Void Amount 500 / 500 200 / 200 375 / 375 Other: # Voids 1 Exam: Constitutional; Afebrile, cooperative, alert, not in distress. Eyes- No icterus, , No periorbital swelling Ears- Ext ear normal, hearing normal to conversation. Neck- Midline trachea, supple Respiratory system: Air Entry equal on both sides, No crackles or wheezing, no rhonchi. CVS- Rate rhythm regular, S1,S2 heard, no gallop, no rub. Abdomen-epigastric abdominal tenderness, no guarding no rigidity. Hypoactive bowel sounds. INSTRUMENT TECH- AOOx3, moving all extremities, no gross focal deficit noted. Medical - PN: Obj Da - Labs CBC & Chem 7: 10/24/17 07:50 10/24/17 07:50 Labs: Abnormal Lab Results 10/24/17 10/24/17 10/23/17 07:50 07:50 09:08 RBC 3.45 L Hct 35.5 L MCV 102.8 H MCH 34.7 H RDW 16.0 H MPV 6.9 L Gran % Lymph % (Auto) 14.7 L Lymph # (Auto) 0.9 L POC Potassium Potassium 2.8 L* Anion Gap Glucose 140 H POC Glucose Calcium 8.4 L POC WB Ioniz Calcium Phosphorus 1.6 L GGT 99 H AST 87 H ALT 45 H Amylase 485 H Lipase 1759 H Urine Protein 100 A Urine Glucose (UA) 50 A Urine Ketones 20 A Urine Occult Blood 0.03 A Urine Urobilinogen 2.0 A Ur Leukocyte Esterase 75 A Urine RBC 7 H Urine WBC 20 H Ur Squamous Epith Cells 6 H Urine Mucus Many A 10/23/17 10/23/17 10/23/17 09:00 09:00 09:00 RBC 3.71 L Hct MCV 102.4 H MCH 34.6 H RDW 16.8 H MPV 7.1 L Gran % 83.2 H Lymph % (Auto) 10.1 L Lymph # (Auto) 0.7 L POC Potassium 3.1 L Potassium 3.2 L Anion Gap 17.0 H Glucose 148 H POC Glucose 157 H Calcium POC WB Ioniz Calcium 1.06 L Phosphorus GGT AST 62 H ALT Amylase 925 H Lipase 6115 H Urine Protein Urine Glucose (UA) Urine Ketones Urine Occult Blood Urine Urobilinogen Ur Leukocyte Esterase Urine RBC Urine WBC Ur Squamous Epith Cells Urine Mucus Meds: Medications Amlodipine Besylate (Norvasc) 10 mg PO DAILY [facility] Last Admin: 10/24/17 09:12 Dose: 10 mg Famotidine (Pepcid) 20 mg IV Q12 [facility] Last Admin: 10/24/17 09:13 Dose: 20 mg Heparin Sodium (Porcine) (Heparin) 5,000 unit SQ Q12 [facility] Last Admin: 10/24/17 09:13 Dose: 5,000 unit Hydrochlorothiazide (Oretic) 12.5 mg PO DAILY [facility] Last Admin: 10/24/17 09:12 Dose: 12.5 mg Dextrose/Lactated Ringer's (Dextrose 5%-Lactated Ringers) 1,000 mls @ 84 mls/ hr IV .[id number] [facility] Last Admin: 10/24/17 02:29 Dose: 84 mls/hr Thiamine HCl 100 mg/ Sodium (Chloride) 51 mls @ 50 mls/hr IV DAILY [facility] Stop: 10/27/17 10:02 Last Admin: 10/24/17 08:11 Dose: 50 mls/hr Potassium Chloride 80 meq/ (Dextrose) 1,040 mls @ 130 mls/hr IV ONCE ONE Stop: 10/24/17 18:59 Last Admin: 10/24/17 09:57 Dose: 130 mls/hr Losartan Potassium (Cozaar) 100 mg PO DAILY [facility] Last Admin: 10/24/17 09:12 Dose: 100 mg Metoprolol Succinate (Toprol Xl) 100 mg PO DAILY [facility] Last Admin: 10/24/17 09:13 Dose: 100 mg Morphine Sulfate (Morphine) 4 mg IV Q2HP PRN PRN Reason: severe pain Last Admin: 10/24/17 12:27 Dose: 4 mg Ondansetron HCl (Zofran) 4 mg IV Q6HP PRN PRN Reason: Nausea And Vomiting Last Admin: 10/24/17 03:55 Dose: 4 mg Promethazine HCl (Phenergan) 12.5 mg IV Q4HP PRN PRN Reason: Nausea And Vomiting Last Admin: 10/24/17 08:11 Dose: 12.5 mg Quetiapine Fumarate (Seroquel) 100 mg PO [facility] Last Admin: 10/23/17 21:34 Dose: 100 mg Sodium Chloride (Saline Flush) 10 ml IV Q8 [facility] Last Admin: 10/24/17 05:22 Dose: Not Given Trazodone HCl (Desyrel) 100 mg PO [facility] Last Admin: 10/23/17 21:34 Dose: 100 mg Medical - PN: A/P - Time Spent With Patient Total time spent is greater than 50% in coordination of care (as documented) at patient's floor/unit and/or counseling patient: - Narrative A/P Narrative: A/P Acute pancreatitis- Alcoholic likely,treat conservatively, IV fluids, npo status and pain meds, monitor clinical response, trend lipase and amylase Dilated pancreatic duct- worsening, plan to have this reviewed by interventional GI specialist renal mass- h/o angiolipoma, confirmed by facility radiologist. Etoh abuse- IV thiamine for now, she zachary withdrawal, last drin 2-3 days ago, monitor for now, consider ciwa if needed HTN- bp elevated resume home meds and monitor DVT hep sq Diet npo for now anticipate clear liquid tomorrow AM FUll code. Medical - PN: Qual - VTE Deep Vein Thrombosis/Pulmonary Embolism Present on Admission: No
[2017-10-24] MEDS: traZODone HCL 100 MG TABLET PO SCH (20:55)
[2017-10-24] MEDS: QUEtiapine 100 MG TABLET PO SCH (20:55)
[2017-10-25] MEDS: ONDANSETRON 4 MG/2 ML VIAL IV PRN (01:48)
[2017-10-25] MEDS: DEXTROSE 5%-LR 1,000 ML IV SCH ×3 (02:15→15:43)
[2017-10-25] MEDS: 0.9 % SODIUM CHLORIDE 10 ML SYRINGE IV SCH ×2 (04:10→15:43)
[2017-10-25 05:37] LABS: Basophils # (Auto) 0 K/mcL (0.0-0.3); Basophils % (Auto) 0.2 % (0.0-2.0); Eosinophils # (Auto) 0.1 K/mcL (0.0-0.7); Eosinophils % (Auto) 1.1 % (0.0-7.0); Granulocytes % (Auto) 69.2 % (38.0-78.0); Lymphocytes # (Auto) 1.3 K/mcL (1.5-4.8); Lymphocytes % (Auto) 21.6 % (15.5-49.0); Mean Cell Volume 103.6 fL (80.0-100.0); Mean Corpuscular HGB Conc 33.8 g/dL (31.0-36.0); Monocytes # (Auto) 0.5 K/mcL (0.1-0.9); Monocytes % (Auto) 7.9 % (1.0-12.0); Platelet Count 175 K/mcL (140-440); RBC 3.01 M/mcL (4.00-5.20); Red Cell Distribution Width 15.8 % (11.5-14.5)
[2017-10-25 06:09] LABS: ALT/SGPT 31 U/l (0-40); Albumin/Globulin Ratio 1.2 (1.0-2.3); Alkaline Phosphatase 87 U/L (39-117); Bilirubin,Direct < 0.2 mg/dL (0.0-0.3); Blood Urea Nitrogen 4 mg/dl (6-20); Gamma Glutamyl Transpeptidase 82 U/L (5-36); Uric Acid 3.3 mg/dL (2.5-8.0)
[2017-10-25] MEDS ORDERED: POTASSIUM CHLORIDE 80 MEQ in DEXTROSE 5% IN WATER 1,000 ML IV ONE (08:26)
[2017-10-25 09:03] LABS: Amylase 111 U/L (28-100); Lipase 188 U/L (7-60)
[2017-10-25] MEDS: HYDROCHLOROTHIAZIDE 12.5 MG CAPSULE PO SCH (09:33)
[2017-10-25] MEDS: FAMOTIDINE/PF 20 MG/2 ML VIAL IV SCH (09:33)
[2017-10-25] MEDS: METOPROLOL SUCCINATE 50 MG TAB.XL.24H PO SCH (09:33)
[2017-10-25] MEDS: amLODIPine 10 MG TABLET PO SCH (09:33)
[2017-10-25] MEDS: HEPARIN 5,000 UNIT/ML VIAL SQ SCH (09:33)
[2017-10-25] MEDS: LOSARTAN 50 MG TABLET PO SCH (09:33)
[2017-10-25] MEDS: THIAMINE 100 MG in 0.9 % SODIUM CHLORIDE 50 ML IV SCH (09:34)
--- NOTE | 2017-10-25 13:57 | Discharge Summary ---
Medical - DS: Prov Patient information: Note initiated : 10/25/17 at 1:53 pm Service Date, if different from initiated Date: [] Patient: Sonia Hernandez 62 y/o F admitted on 10/23/17 for Abd Pain/ Pancreatitis. Chief Complaint: [] Date of admission: 10/23/17 13:12 Discharge date: 10/25/17 Primary care physician: Moises Romeo Admitting clinician: Hector Maldonado Consults: 10/23/17 Consult to Physician [CONS] Stat Comment: Consulting Provider: Delvin Joseph Reason For Exam: Physician to Consult 10/23/17 12:04 Consult to Physician [CONS] Stat Comment: Consulting Provider: Hector Maldonado Reason For Exam: Physician to Consult Discharging clinician: Hector Maldonado Medical - DS: Meds - Discharge Medications Prescriptions: Ondansetron HCl [Zofran ODT] 4 mg SL Q4HP PRN #20 tab PRN Reason: Nausea Potassium Chloride [Kdur] 10 meq PO QAMCC #7 tab Active and Home Medications: Home Medications Metoprolol Succinate [Toprol Xl] 100 mg PO DAILY 10/15/15 [History Confirmed Last Taken 10/23/17] amLODIPine [Norvasc] 10 mg PO DAILY 10/15/15 [History Confirmed 10/23/17 Last Taken 10/23/17] traZODone HCL [Desyrel] 100 mg PO HS 10/15/15 [History Confirmed 10/23/17 Last Taken 10/22/17] Ondansetron HCl [Zofran ODT] 4 mg SL Q4HP PRN #20 tab 03/27/17 [Rx Confirmed Last Taken 10/23/17] QUEtiapine FUMARATE [Seroquel] 100 mg PO HS 05/18/17 [History Confirmed Last Taken 10/22/17] Valsartan/Hydrochlorothiazide [Valsartan-Hctz 320-25 mg Tab] 0.5 each PO DAILY 05/18/17 [History Confirmed 10/23/17 Last Taken 10/23/17] Medical - DS: Hosp Hospital course: Ms. Hernandez is a 62 year old F with history of alcoholism, history of pancolitis in the past, [place]-en-Y procedure in the past. The patient presents to the emergency room today for abdominal pain that has been going on for 2-1/2 days. Pain is epigastric sharp nonradiating severe intermittent. Worsened by some p.o. intake putting pressure on the abdomen helps. 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 and see if this helps manage his symptoms over the last 2 days however her symptoms kept on worsening. The patient therefore came to the ER for further evaluation. The patient's pain is accompanied by nausea and vomiting. Which she has had multiple times over the last few days. The patient denies any other complaints. She notes she felt hot but denies any documented fever. No cough reported. In 2016 the patient had pancreatitis with dilated pancreatic duct, the patient was transferred to [facility] where she underwent an MRCP, she was advised and ERCP then which she did not follow through with. This time around it seems that the pancreatic duct is more dilated, she is willing to consider an ERCP if needed. Case was discussed with Dr. Peterson in the ER who did not think you needed to be involved in this case. Advised an MRCP during the hospital stay if needed. He felt that the patient did not need emergent ERCP. Patient is being admitted to the hospital for further management. Acute pancretitis- Etoh related pancreatitis, CT shows simple pancreatitis, patient treated conservatively, with good clinical response. AT the time of discharge she is tolerating po diet well, and pain is resolved. Educated to avoid Etoh use in future. Dialted pancreatic duct- Noted on CT in 2016 and now 2018, MRCP shows progressive dilation of the duct from 5mm to 7.9mm, reviewed findings with Dr Gannon [facility], who reviewed this with Dr Cruz. They do not plan to intervene right away, but advise that the patient have a EBUS/ ERCP once her pancreatitis has settled down,they will get in touch with the patient for appointment. Pt also follows with Dr Vázquez who usually refers his patients to [facility]. Pt will decide how she wants to proceed after discussing with her specialist. Hypokalemia- Poor oral intake as well as etoh, oral KCL supplements at discharge , I expect potassium to be back to normal once she is able t resume oral diet. Rest of the stay in the hospital uneventful, d/c home with pcp follow up. Discharge diagnosis: Acute pancreatitis - Time Spent with Patient Total time spent providing and/or coordinating discharge services: Greater than 30 minutes Medical - DS: Exam - Constitutional Vitals: Vital Signs Temp Pulse Resp BP BP Pulse Ox 10/25/17 11:27 97.2 F 16 132/78 95 10/25/17 06:29 98.3 F 18 113/69 93 10/25/17 04:00 98.9 F 70 16 110/65 92 10/24/17 23:35 99.1 F H 89 18 126/81 95 10/24/17 19:36 98.8 F 77 18 133/84 92 10/24/17 16:00 98.3 F 79 15 125/80 97 Intake and Output 10/24/17 10/25/17 10/25/17 21:59 05:59 13:59 Intake Total 2380 / 2380 580 / 580 1000 / 1000 Output Total 675 / 675 1075 / 1075 400 / 400 Balance 1705 / 1705 -495 / -495 600 / 600 Intake: IV 2040 / 2040 1000 / 1000 Dextrose 5%-Lactated Ringers 1, 1000 / 1000 1000 / 1000 000 ml @ 84 mls/hr IV .[id number] [facility] Rx#:[id number] Potassium Chloride 80 Meq In 1040 / 1040 Dextrose 5% in Water 1,000 ml @ 130 mls/hr IV ONCE ONE Rx#: [id number] Oral 340 / 340 580 / 580 Output: Void Amount 675 / 675 1075 / 1075 400 / 400 Other: Meal Dinner Percent of Meal Consumed 50% Feeding Ability Independent Stool Size Small Small Stool Color Brown Stool Consistency Loose Formed # Bowel Movements 1 1 Weight 198 lb Additional comments: Constitutional; Afebrile, cooperative, alert, not in distress. Eyes- No icterus, , No periorbital swelling Ears- Ext ear normal, hearing normal to conversation. Neck- Midline trachea, supple Respiratory system: Air Entry equal on both sides, No crackles or wheezing, no rhonchi. CVS- Rate rhythm regular, S1,S2 heard, no gallop, no rub. Abdomen- Soft nontender abdomen, no organomegaly, no tenderness, no guarding or rigidity, ANNUAL GIVING OFFICER- AOOx3, moving all extremities, no gross focal deficit noted. Medical - DS: Data Labs on day of discharge: Labs from last 24 hours 10/25/17 10/25/17 10/25/17 04:05 03:50 03:50 WBC 5.9 RBC 3.01 L Hgb 10.5 L Hct 31.1 L MCV 103.6 H MCH 35.0 H MCHC 33.8 RDW 15.8 H Plt Count 175 MPV 7.3 L Gran % 69.2 Lymph % (Auto) 21.6 Real % (Auto) 7.9 Eos % (Auto) 1.1 Baso % (Auto) 0.2 Gran # 4.1 Lymph # (Auto) 1.3 L Real # (Auto) 0.5 Eos # (Auto) 0.1 Baso # (Auto) 0 Sodium 138 Potassium 3.2 L Chloride 101 Carbon Dioxide 29 Anion Gap 8.0 BUN 4 L Creatinine 0.6 GFR Calculation 99 Glucose 125 H Uric Acid 3.3 Calcium 8.4 L Phosphorus 1.9 L Magnesium 2.2 Total Bilirubin 0.8 Direct Bilirubin < 0.2 GGT 82 H AST 37 ALT 31 Alkaline Phosphatase 87 Lactate Dehydrogenase 179 Total Protein 5.5 L Albumin 3.0 L Globulin 2.5 Albumin/Globulin Ratio 1.2 Triglycerides 95 Amylase 111 H Lipase 188 H Medical - DS: A/P - Patient/Caregiver Discharge Instructions Activity: increase activity as tolerated Diet: Regular Diet Additional Instructions: Avoid any further alcohol use Eat diet rich in potassium, Check your lab/ potassium in 1 week, your pcp can order the test [facility] will get in touch with your with regards to scheduling an appointment for EBUS/ ERCP as outpatient. Follow up with PCP in 1 week If your pain returns, you have chest pain, shortness of breath, fever or any other acute symptom, please return to the ER - Follow up Plan Follow up with: Moises Romeo MD [Primary Care Provider] - Disposition: Home, Self-Care Prognosis: Fair Rehab Potential: Fair I certify that the patient requires SNF services: No Overall status at discharge: patient is progressing back to baseline Medical - DS: Qual - VTE Deep Vein Thrombosis/Pulmonary Embolism Present on Admission: No
== END 2017-10-25 15:35 | disposition home or self-care (01) | DRG 439 ==
LOC: ED 08:34 → MEDSUR 13:12
PROVIDERS: ADMIT Internal Medicine; ATTEND Internal Medicine